=== PATIENT | female | born 1975 | race Caucasian/White ===

== ENCOUNTER 2016-09-18 10:13 | Inpatient (IN) | payer OTHER ==
[2016-09-18 11:13] VITALS: BMI 30.9
--- NOTE | 2016-09-18 11:52 | HP ---
COWS - Scale Resting Pulse: 0= DC 80 or Below Sweatin= Chills/Flushing Restless Observation: 1= Difficult to Sit Still Pupil Size: 0= Normal to Room Light Bone or Joint Aches: 2= Severe Diffuse Aches Runny Nose/ Eye Tearin= Runny Nose/Eyes GI Upset > 30mins: 1= Stomach Cramp Tremor Observation: 1= Tremor [place], Not Seen Yawning Observation: 1= 1-2x During Session Anxiety or Irritability: 2=Irritable/Anxious Goose Flesh Skin: 0=Smooth Skin COWS Score: 11 Admission ROS BHS - HPI Chief Complaint: I want to stop, I'm tired Allergies/Adverse Reactions: Allergies Allergy/AdvReac Type Severity Reaction Status Date / Time No Known Allergies Allergy Verified 09/18/16 11:47 History of Present Illness: 40 yo woman here for detox from heroin - also uses marijuana. No seizures but does have black outs. History of being on methadone program but 'it didn't work for me' now thinking about suboxone. Exam Limitations: Clinical Condition - Ebola screening Have you traveled outside of the country in the last 21 days: No Have you had contact with anyone from an Ebola affected area: No Have you been sick,other than usual withdrawal symptoms: No Do you have a fever: No - Review of Systems Constitutional: Loss of Appetite, Night Sweats, Changes in sleep EENT: reports: Blurred Vision, Nose Congestion Respiratory: reports: Shortness of Breath, Wheezing Cardiac: reports: No Symptoms Reported GI: reports: Nausea, Abdominal cramping : reports: No Symptoms Reported Musculoskeletal: reports: Back Pain, Muscle Pain Integumentary: reports: Rash (chronic eczema) Neuro: reports: Headache, Tremors Endocrine: reports: No Symptoms Reported Hematology: reports: No Symptoms Reported Psychiatric: reports: Judgement Intact, Mood/Affect Appropiate, Orientated x3, Anxious Other Systems: Reviewed and Negative Patient History - Patient Medical History Hx Anemia: No Hx Asthma: Yes Hx Cancer: No Hx Cardiac Disorders: No Hx Congestive Heart Failure: No Hx Hypertension: No Hx Hypercholesterolemia: No Hx Pacemaker: No HX Cerebrovascular Accident: No Hx Seizures: No Hx Dementia: No Hx Diabetes: No Hx Gastrointestinal Disorders: No Hx Liver Disease: No Hx Genitourinary Disorders: No Hx Sexually Transmitted Disorders: No Hx Renal Disease (ESRD): No Hx Thyroid Disease: No Hx Human Immunodeficiency Virus (HIV): No Hx Hepatitis C: No Hx Depression: Yes (hx meds - depakot, celexa, clonopin - none x 2 years) Hx Suicide Attempt: Yes (5 years ago - overdose - hospitalized [place]) Hx Bipolar Disorder: Yes - Patient Surgical History Past Surgical History: Yes Hx Breast Biopsy: Yes (left lumpectomy 2002 (benign)) Hx Cholecystectomy: Yes (over 10 years ago) Hx Orthopedic Surgery: Yes (left carpal tunnel release 2005; [id number]) - PPD History Previous Implant?: Yes Documented Results: Negative w/o proof Implanted On Prior [facility] Admission?: No PPD to be Administered?: Yes - Reproductive History Patient is a Female of Child Bearing Age (11 -55 yrs old): No (male) - Smoking Cessation Smoking history: Current every day smoker Have you smoked in the past 12 months: Yes Aproximately how many cigarettes per day: 20 Initiated information on smoking cessation: Yes 'Breaking Loose' booklet given: 09/18/16 (give on floor) - Substance & Tx. History Hx Alcohol Use: No Hx Substance Use: Yes Substance Use Type: Heroin, Marijuana Hx Substance Use Treatment: Yes (detox, hx methadone) - Substances Abused Heroin Route: Inhalation Frequency: Daily Amount used: 10 bags Age of first use: 36 Date of Last Use: 09/17/16 Marijuana/Hashish Route: Smoking Frequency: Daily Amount used: 1 bag Age of first use: 14 Date of Last Use: 09/17/16 Family Disease History - Family Disease History Family Disease History: Diabetes: Mother (alive,), Heart Disease: Mother, CA: Father (, etoh), Respiratory: Sister (depression, etoh, drugs), Other: Father, Mother, Brother (etoh, drugs, alive), Sister, Daughter (asthma) Admission Physical Exam BHS - Vital Signs Vital Signs: Vital Signs - 24 hr 09/18/16 11:11 Temperature 98.5 F Pulse Rate 76 Respiratory 18 Rate Blood Pressure 128/83 - Physical General Appearance: Yes: Nourished, Appropriately Dressed, Mild Distress, Anxious HEENTM: Yes: Hearing grossly Normal, Normocephalic, Normal Voice, Pharynx Normal , Rhinorrhea, Other (two tongue studs) Respiratory: Yes: No Respiratory Distress, Rhonchi Neck: Yes: No masses,lesions,Nodules, Supple Breast: Yes: Breast Exam Deferred Cardiology: Yes: Regular Rhythm, Regular Rate Abdominal: Yes: Soft Genitourinary: Yes: Within Normal Limits Back: Yes: Surgical Scar Musculoskeletal: Yes: full range of Motion, Gait Steady, Back pain, Muscle Pain Extremities: Yes: Normal Inspection, Non-Tender Neurological: Yes: Fully Oriented, Alert, Motor Strength 5/5, Normal Mood/Affect , Normal Response Integumentary: Yes: Normal Color, Warm, Rash (mild erythematous dry rash both arms) Lymphatic: Yes: Within Normal Limits - Diagnostic (1) Asthma Current Visit: Yes Status: Chronic Qualifiers: Asthma severity: mild persistent Asthma complication type: uncomplicated Qualified Code(s): J45.30 - Mild persistent asthma, uncomplicated (2) Back pain Current Visit: Yes Status: Chronic Qualifiers: Back pain location: low back pain Chronicity: chronic Sciatica presence: without sciatica (3) Eczema Current Visit: Yes Status: Chronic Qualifiers: Eczema type: other Qualified Code(s): L30.8 - Other specified dermatitis (4) Marijuana dependence Current Visit: Yes Status: Chronic (5) Nicotine dependence Current Visit: Yes Status: Chronic Qualifiers: Nicotine product type: cigarettes Substance use status: uncomplicated Qualified Code(s): F17.210 - Nicotine dependence, cigarettes, uncomplicated (6) Post-laminectomy syndrome Current Visit: Yes Status: Chronic (7) Uncomplicated opioid dependence Current Visit: Yes Status: Chronic Cleared for Admission [facility] - Detox or Rehab [facility] Level of Care: Medically Managed Detox Regimen/Protocol: Methadone [facility] Breath Alcohol Content Breath Alcohol Content: 0 Urine Pregancy Test - Result Urine Test Results: Negative- NO Line Present Urine Drug Screen - Results Drug Screen Negative: No Urine Drug Screen Results: THC-Marijuana, OPI-Opiates
[2016-09-18] MEDS ORDERED: MAG HYDROX/AL HYDROX/SIMETH 30 ML UNIT-DOSE CUP PO PRN (12:03)
[2016-09-18] MEDS ORDERED: ACETAMINOPHEN 325 MG TABLET (FP) PO PRN (12:03)
[2016-09-18] MEDS ORDERED: LOPERAMIDE HCL 2 MG CAPSULE PO PRN (12:03)
[2016-09-18] MEDS ORDERED: METHADONE HCL 10 MG TABLET (FOR DETOX USE ONLY) PO ONE ×2 (12:03→23:00)
[2016-09-18] MEDS ORDERED: MAGNESIUM HYDROX 2400MG/30ML ORAL SUSPENSION 30 ML CUP PO PRN (12:03)
[2016-09-18] MEDS ORDERED: guaiFENesin/D-METHORPHAN HB 10 ML UNIT-DOSE CUPS PO PRN (12:03)
[2016-09-18] MEDS ORDERED: P-EPHED 60MG/TRIPROLIDI 2.5MG TABLET PO PRN (12:03)
[2016-09-18] MEDS ORDERED: MAGNESIUM CITRATE 300 ML BOTTLE PO PRN (12:03)
[2016-09-18] MEDS ORDERED: MENTHOL/PHENOL 1 EACH UD MM PRN (12:03)
[2016-09-18] MEDS ORDERED: IBUPROFEN 400 MG TABLET (FP) PO PRN (12:03)
[2016-09-18] MEDS: ALBUTEROL SO4 6.7 GM HFA INHALER IH SCH ×3 (12:30→21:28)
[2016-09-18] MEDS: diazePAM 5 MG TABLET PO PRN ×2 (13:56→22:08)
[2016-09-18] MEDS: NICOTINE 21 MG/24 HOURS TOPICAL PATCH TD SCH (13:57)
[2016-09-18] MEDS: LIDOCAINE 5% TOPICAL PATCH TP SCH (14:09)
[2016-09-18] MEDS: FLUOCINONIDE 0.05% TOP OINT (60 GM TUBE) TP SCH ×2 (14:40→22:55)
[2016-09-18] MEDS ORDERED: ALBUTEROL SO4 6.7 GM HFA INHALER IH ONE (16:29)
[2016-09-18] MEDS: THIAMINE HCL 100 MG TABLET (FP) PO SCH (22:08)
[2016-09-18] MEDS: diphenhydrAMINE HCL 50 MG CAPSULE PO PRN (22:08)
[2016-09-18] MEDS: ALBUTEROL SO4 2.5/IPRATROPIUM 0.5 INH SOL 3 ML VIAL.NEB. NEB PRN (22:56)
[2016-09-19] MEDS: ALBUTEROL SO4 6.7 GM HFA INHALER IH SCH ×6 (06:17→23:58)
[2016-09-19] MEDS: ALBUTEROL SO4 2.5/IPRATROPIUM 0.5 INH SOL 3 ML VIAL.NEB. NEB PRN (06:22)
[2016-09-19 09:59] LABS: MCH 29.6 pg (25.7-33.7); MCHC 32.8 g/dl (32.0-36.0); MEAN CELL VOLUME 90.2 fl (80-96); MEAN PLT VOLUME 8.5 fl (7.5-11.1); PLATELET COUNT 220 K/MM3 (134-434); RDW 14.6 % (11.6-15.6); WHITE BLOOD COUNT 5.9 K/mm3 (4.0-10.0)
[2016-09-19] MEDS ORDERED: METHADONE HCL 10 MG TABLET (FOR DETOX USE ONLY) PO ONE (10:00)
[2016-09-19 10:03] LABS: ALBUMIN 3.8 g/dl (3.4-5.0); ALK PHOS 94 U/L (45-117); ANION GAP 7 (8-16); BILIRUBIN,TOTAL 0.5 mg/dL (0.2-1.0); CALCIUM 9.3 mg/dL (8.5-10.1); CO2 27 mmol/L (21-32); COCKROFT - GAULT 136.3145; CREATININE 0.7 mg/dL (0.55-1.02); GLUCOSE,RANDOM 128 mg/dL (74-106); SGOT/AST 16 U/L (15-37); SGPT/ALT 15 U/L (12-78); TOT PROT 7.3 g/dl (6.4-8.2)
[2016-09-19] MEDS: PRENATAL VITAMINS W/ FOLIC ACID TABLET (FP) PO SCH (10:09)
[2016-09-19] MEDS: NICOTINE 21 MG/24 HOURS TOPICAL PATCH TD SCH (10:10)
[2016-09-19] MEDS: LIDOCAINE 5% TOPICAL PATCH TP SCH (10:10)
[2016-09-19] MEDS: FLUOCINONIDE 0.05% TOP OINT (60 GM TUBE) TP SCH ×2 (10:10→23:01)
[2016-09-19] MEDS: diazePAM 5 MG TABLET PO PRN ×3 (10:14→20:43)
[2016-09-19 10:25] LABS: URINE APPEARANCE CLEAR; URINE BILIRUBIN NEGATIVE (NEGATIVE); URINE BLOOD NEGATIVE (NEGATIVE); URINE COLOR YELLOW; URINE GLUCOSE (UA) NEGATIVE (NEGATIVE); URINE KETONE NEGATIVE (NEGATIVE); URINE LEUK ESTERASE NEGATIVE (NEGATIVE); URINE NITRITE POSITIVE (NEGATIVE); URINE PROTEIN NEGATIVE (NEGATIVE); URINE UROBILINOGEN NEGATIVE E.U./dl (0.2-1.0)
[2016-09-19] MEDS ORDERED: ONDANSETRON *ODT* 4 MG TABLET SL PRN (11:03)
[2016-09-19 11:04] LABS: URINE BACTERIA RARE /hpf (NONE SEEN); URINE MUCUS RARE; URINE RBC <1 /hpf (0-3); URINE WBC <1 /hpf (3-5)
[2016-09-19] MEDS ORDERED: IBUPROFEN 600 MG TABLET (FP) PO PRN (11:05)
--- NOTE | 2016-09-19 11:09 | PN ---
BHS COWS - Scale Resting Pulse: 1= [place] 81-100 Sweatin=Flushed/Facial Moisture Restless Observation: 1= Difficult to Sit Still Pupil Size: 0= Normal to Room Light Bone or Joint Aches: 2= Severe Diffuse Aches Runny Nose/ Eye Tearin= Runny Nose/Eyes GI Upset > 30mins: 2= Nausea/Diarrhea Tremor Observation of Outstretched Hands: 2= Slight Tremor Visible Yawning Observation: 1= 1-2x During Session Anxiety or Irritability: 2=Irritable/Anxious Goose Flesh Skin: 0=Smooth Skin COWS Score: 15 BHS Progress Note (SOAP) Subjective: Nausea,body aches,sweating,anxiety,restless,interrupted sleep. Objective: 09/19/16 11:07 Last Vital Signs Temp Pulse Resp BP Pulse Ox 98.8 F 91 H 18 139/86 09/19/16 09:34 09/19/16 09:34 09/19/16 09:34 09/19/16 09:34 Laboratory Last Values WBC 5.9 K/mm3 (4.0-10.0) 09/19/16 08:00 RBC 4.82 M/mm3 (3.60-5.2) 09/19/16 08:00 Hgb 14.3 GM/dL (10.7-15.3) 09/19/16 08:00 Hct 43.5 % (32.4-45.2) 09/19/16 08:00 MCV 90.2 fl (80-96) 09/19/16 08:00 MCHC 32.8 g/dl (32.0-36.0) 09/19/16 08:00 RDW 14.6 % (11.6-15.6) 09/19/16 08:00 Plt Count 220 K/MM3 (134-434) 09/19/16 08:00 MPV 8.5 fl (7.5-11.1) 09/19/16 08:00 Sodium 140 mmol/L (136-145) 09/19/16 08:00 Potassium 4.3 mmol/L (3.5-5.1) 09/19/16 08:00 Chloride 106 mmol/L (98-107) 09/19/16 08:00 Carbon Dioxide 27 mmol/L (21-32) 09/19/16 08:00 Anion Gap 7 (8-16) L 09/19/16 08:00 BUN 6 mg/dL (7-18) L 09/19/16 08:00 Creatinine 0.7 mg/dL (0.55-1.02) 09/19/16 08:00 Creat Clearance w eGFR > 60 (>60) 09/19/16 08:00 Random Glucose 128 mg/dL (74-106) H 09/19/16 08:00 Calcium 9.3 mg/dL (8.5-10.1) 09/19/16 08:00 Total Bilirubin 0.5 mg/dL (0.2-1.0) 09/19/16 08:00 AST 16 U/L (15-37) 09/19/16 08:00 ALT 15 U/L (12-78) 09/19/16 08:00 Alkaline Phosphatase 94 U/L (45-117) 09/19/16 08:00 Total Protein 7.3 g/dl (6.4-8.2) 09/19/16 08:00 Albumin 3.8 g/dl (3.4-5.0) 09/19/16 08:00 Urine Color Yellow 09/18/16 08:40 Urine Appearance Clear 09/18/16 08:40 Urine pH 6.0 (5.0-8.0) 09/18/16 08:40 Urine Protein Negative (NEGATIVE) 09/18/16 08:40 Urine Glucose (UA) Negative (NEGATIVE) 09/18/16 08:40 Urine Ketones Negative (NEGATIVE) 09/18/16 08:40 Urine Blood Negative (NEGATIVE) 09/18/16 08:40 Urine Nitrite Positive (NEGATIVE) 09/18/16 08:40 Urine Bilirubin Negative (NEGATIVE) 09/18/16 08:40 Urine Urobilinogen Negative E.U./dl (0.2-1.0) 09/18/16 08:40 Ur Leukocyte Esterase Negative (NEGATIVE) 09/18/16 08:40 labs noted Assessment: 09/19/16 11:08 Withdrawal sx. Plan: continue detox
[2016-09-19] MEDS: diphenhydrAMINE HCL 50 MG CAPSULE PO PRN (22:11)
[2016-09-19] MEDS: THIAMINE HCL 100 MG TABLET (FP) PO SCH (23:58)
[2016-09-20] MEDS: ALBUTEROL SO4 6.7 GM HFA INHALER IH SCH ×6 (00:59→20:55)
[2016-09-20] MEDS: diazePAM 5 MG TABLET PO PRN ×4 (02:53→22:32)
--- NOTE | 2016-09-20 09:10 | EKG ---
Test Reason : Blood Pressure : / mmHG Vent. Rate : 069 BPM Atrial Rate : 069 BPM P-R Int : 130 ms QRS Dur : 092 ms QT Int : 406 ms P-R-T Axes : 066 040 042 degrees QTc Int : 435 ms NORMAL SINUS RHYTHM POSSIBLE LEFT ATRIAL ENLARGEMENT SEPTAL INFARCT , AGE UNDETERMINED ABNORMAL ECG NO PREVIOUS ECGS AVAILABLE Confirmed by DARIANA MCQUEEN MD ([id number]) on 09/20/2016 9:10:16 AM Referred By: Confirmed By:DARIANA MCQUEEN MD
[2016-09-20] MEDS ORDERED: METHADONE HCL 5 MG TABLET (FOR DETOX USE ONLY) PO ONE (10:00)
[2016-09-20] MEDS: PRENATAL VITAMINS W/ FOLIC ACID TABLET (FP) PO SCH (10:22)
[2016-09-20] MEDS: FLUOCINONIDE 0.05% TOP OINT (60 GM TUBE) TP SCH ×2 (10:23→22:29)
[2016-09-20] MEDS: NICOTINE 21 MG/24 HOURS TOPICAL PATCH TD SCH (10:23)
[2016-09-20] MEDS: LIDOCAINE 5% TOPICAL PATCH TP SCH (10:24)
--- NOTE | 2016-09-20 10:59 | PN ---
S COWS - Scale Resting Pulse: 1= [place] 81-100 Sweatin=Flushed/Facial Moisture Restless Observation: 1= Difficult to Sit Still Pupil Size: 1= Pupils >than Normal Bone or Joint Aches: 2= Severe Diffuse Aches Runny Nose/ Eye Tearin= Nasal Congestion GI Upset > 30mins: 2= Nausea/Diarrhea Tremor Observation of Outstretched Hands: 1= Tremor [place], Not Seen Yawning Observation: 0= None Anxiety or Irritability: 2=Irritable/Anxious Goose Flesh Skin: 0=Smooth Skin COWS Score: 13 BHS Progress Note (SOAP) Subjective: interrupted sleep, sweats, nausea, , decreased appetite, lbp Objective: 09/20/16 10:57 Vital Signs Temperature 98.1 F 09/20/16 09:52 Pulse Rate 87 09/20/16 09:52 Respiratory Rate 16 09/20/16 09:52 Blood Pressure 133/83 09/20/16 09:52 O2 Sat by Pulse Oximetry (%) Laboratory Tests 09/18/16 09/19/16 09/19/16 08:40 08:00 08:00 WBC 5.9 RBC 4.82 Hgb 14.3 Hct 43.5 MCV 90.2 MCHC 32.8 RDW 14.6 Plt Count 220 MPV 8.5 Sodium 140 Potassium 4.3 Chloride 106 Carbon Dioxide 27 Anion Gap 7 L BUN 6 L Creatinine 0.7 Creat Clearance w eGFR > 60 Random Glucose 128 H Calcium 9.3 Total Bilirubin 0.5 AST 16 ALT 15 Alkaline Phosphatase 94 Total Protein 7.3 Albumin 3.8 Urine Color Yellow Urine Appearance Clear Urine pH 6.0 Ur Specific [place] 1.015 Urine Protein Negative Urine Glucose (UA) Negative Urine Ketones Negative Urine Blood Negative Urine Nitrite Positive Urine Bilirubin Negative Urine Urobilinogen Negative Ur Leukocyte Esterase Negative Urine RBC <1 Urine WBC <1 Ur Epithelial Cells Rare Urine Bacteria Rare Urine Mucus Rare RPR Titer 09/19/16 08:00 WBC RBC Hgb Hct MCV MCHC RDW Plt Count MPV Sodium Potassium Chloride Carbon Dioxide Anion Gap BUN Creatinine Creat Clearance w eGFR Random Glucose Calcium Total Bilirubin AST ALT Alkaline Phosphatase Total Protein Albumin Urine Color Urine Appearance Urine pH Ur Specific [place] Urine Protein Urine Glucose (UA) Urine Ketones Urine Blood Urine Nitrite Urine Bilirubin Urine Urobilinogen Ur Leukocyte Esterase Urine RBC Urine WBC Ur Epithelial Cells Urine Bacteria Urine Mucus RPR Titer Nonreactive pt aox3 in nad ambulating 09/20/16 10:59 Assessment: 09/20/16 10:57 witthdrawal sx;s Plan: cont. detox increase fluids zofran prn ensure 180ml po bid flexeril 10mg tid/prn
--- NOTE | 2016-09-20 11:22 | CONSULT ---
[facility] Psychiatric Consult - Data Date of interview: 09/20/16 Admission source: [facility] Identifying data: This is 40 years old female with psychiatric hospitalization history intoxicated with: Opioids, Cannabis, Nicotine Substance Abuse History: - Smoking Cessation. Smoking history: Current every day smoker. Have you smoked in the past 12 months: Yes. Aproximately how many cigarettes per day: 20. Initiated information on smoking cessation: Yes. ' Breaking Loose' booklet given: 09/18/16 (give on floor). - Substance & Tx. History. Hx Alcohol Use: No. Hx Substance Use: Yes. Substance Use Type: Heroin, Marijuana. Hx Substance Use Treatment: Yes (detox, hx methadone). - Substances Abused. Heroin. Route: Inhalation. Frequency: Daily. Amount used: 10 bags. Age of first use: 36. Date of Last Use: 09/17/16. Marijuana /Hashish. Route: Smoking. Frequency: Daily. Amount used: 1 bag. Age of first use: 14. Date of Last Use: 09/17/16 Medical History: Asthma, LBP, Eczema Psychiatric History: Patient reports psychiatric hospitalization on 2008 after suicidal attempt,l cutting his wrists with credit card, reports no suicidal history since then, reports no medications taking prior to admission Physical/Sexual Abuse/Trauma History: Denies Additional Comment: Observation. Detox Unit Care Protocol Mental Status Exam - Mental Status Exam Alert and Oriented to: Person Cognitive Function: Fair Patient Appearance: Unkempt Mood: Sad Affect: Flat Patient Behavior: Sedated Speech Pattern: Delayed Voice Loudness: Mildly Soft/Quiet Thought Process: Circumstantial Thought Disorder: Being Controlled Hallucinations: Denies Suicidal Ideation: Denies Homicidal Ideation: Denies Insight/Judgement: Fair Sleep: Difficulty falling asleep Appetite: Fair Muscle strength/Tone: Mild Hypotonicity Gait/Station: Shuffling Additional Comments: Observation. Detox Unit Care Protocol Psychiatric Findings - Problem List ([place] 1, 2,3) (1) Marijuana dependence Current Visit: Yes Status: Chronic (2) Nicotine dependence Current Visit: Yes Status: Chronic Qualifiers: Nicotine product type: cigarettes Substance use status: uncomplicated Qualified Code(s): F17.210 - Nicotine dependence, cigarettes, uncomplicated (3) Uncomplicated opioid dependence Current Visit: Yes Status: Chronic (4) Drug-induced mood disorder Current Visit: Yes Status: Suspected - Initial Treatment Plan Initial Treatment Plan: Observation. Detox Unit Care Protocol
[2016-09-20] MEDS: CYCLOBENZAPRINE HCL 10 MG TABLET (FP) PO PRN (12:26)
[2016-09-20] MEDS: hydrOXYzine PAMOATE 50 MG CAPSULE (FP) PO PRN (12:26)
[2016-09-20] MEDS: THIAMINE HCL 100 MG TABLET (FP) PO SCH (22:28)
[2016-09-20] MEDS: diphenhydrAMINE HCL 50 MG CAPSULE PO PRN (22:32)
[2016-09-21] MEDS: ALBUTEROL SO4 6.7 GM HFA INHALER IH SCH ×6 (01:09→21:10)
[2016-09-21] MEDS: diazePAM 5 MG TABLET PO PRN ×2 (04:41→10:29)
[2016-09-21] MEDS: hydrOXYzine PAMOATE 50 MG CAPSULE (FP) PO PRN ×3 (06:38→17:36)
[2016-09-21] MEDS ORDERED: METHADONE HCL 5 MG TABLET (FOR DETOX USE ONLY) PO ONE (10:00)
[2016-09-21] MEDS: PRENATAL VITAMINS W/ FOLIC ACID TABLET (FP) PO SCH (10:24)
[2016-09-21] MEDS: NICOTINE 21 MG/24 HOURS TOPICAL PATCH TD SCH (10:25)
[2016-09-21] MEDS: FLUOCINONIDE 0.05% TOP OINT (60 GM TUBE) TP SCH ×2 (10:25→22:08)
[2016-09-21] MEDS: LIDOCAINE 5% TOPICAL PATCH TP SCH (10:25)
[2016-09-21] MEDS: CYCLOBENZAPRINE HCL 10 MG TABLET (FP) PO PRN (10:29)
--- NOTE | 2016-09-21 10:50 | PN ---
BHS Progress Note (SOAP) Subjective: interrupted sleep agitation body aches sweats chills nausea Objective: 09/21/16 10:49 Vital Signs Temperature 98.1 F 09/21/16 05:59 Pulse Rate 73 09/21/16 05:59 Respiratory Rate 16 09/21/16 05:59 Blood Pressure 94/54 09/21/16 05:59 O2 Sat by Pulse Oximetry (%) Laboratory Tests 09/18/16 09/19/16 09/19/16 08:40 08:00 08:00 WBC 5.9 RBC 4.82 Hgb 14.3 Hct 43.5 MCV 90.2 MCHC 32.8 RDW 14.6 Plt Count 220 MPV 8.5 Sodium 140 Potassium 4.3 Chloride 106 Carbon Dioxide 27 Anion Gap 7 L BUN 6 L Creatinine 0.7 Creat Clearance w eGFR > 60 Random Glucose 128 H Calcium 9.3 Total Bilirubin 0.5 AST 16 ALT 15 Alkaline Phosphatase 94 Total Protein 7.3 Albumin 3.8 Urine Color Yellow Urine Appearance Clear Urine pH 6.0 Ur Specific [place] 1.015 Urine Protein Negative Urine Glucose (UA) Negative Urine Ketones Negative Urine Blood Negative Urine Nitrite Positive Urine Bilirubin Negative Urine Urobilinogen Negative Ur Leukocyte Esterase Negative Urine RBC <1 Urine WBC <1 Ur Epithelial Cells Rare Urine Bacteria Rare Urine Mucus Rare RPR Titer 09/19/16 08:00 WBC RBC Hgb Hct MCV MCHC RDW Plt Count MPV Sodium Potassium Chloride Carbon Dioxide Anion Gap BUN Creatinine Creat Clearance w eGFR Random Glucose Calcium Total Bilirubin AST ALT Alkaline Phosphatase Total Protein Albumin Urine Color Urine Appearance Urine pH Ur Specific [place] Urine Protein Urine Glucose (UA) Urine Ketones Urine Blood Urine Nitrite Urine Bilirubin Urine Urobilinogen Ur Leukocyte Esterase Urine RBC Urine WBC Ur Epithelial Cells Urine Bacteria Urine Mucus RPR Titer Nonreactive awake/alert ambulating no acute distress Assessment: 09/21/16 10:49 withdrawal sx Plan: continue detox increase fluids zofran prn
[2016-09-21] MEDS ORDERED: LIDOCAINE 5% TOPICAL PATCH TP ONE (11:41)
[2016-09-21] MEDS: THIAMINE HCL 100 MG TABLET (FP) PO SCH (22:08)
[2016-09-22] MEDS: ALBUTEROL SO4 6.7 GM HFA INHALER IH SCH ×6 (00:52→20:15)
[2016-09-22] MEDS: diphenhydrAMINE HCL 50 MG CAPSULE PO PRN ×2 (01:50→22:14)
[2016-09-22] MEDS ORDERED: METHADONE HCL 10 MG TABLET (FOR DETOX USE ONLY) PO ONE (10:00)
[2016-09-22] MEDS: CYCLOBENZAPRINE HCL 10 MG TABLET (FP) PO PRN ×2 (10:19→22:14)
[2016-09-22] MEDS: hydrOXYzine PAMOATE 50 MG CAPSULE (FP) PO PRN ×2 (10:19→17:42)
[2016-09-22] MEDS: FLUOCINONIDE 0.05% TOP OINT (60 GM TUBE) TP SCH ×2 (10:19→22:13)
[2016-09-22] MEDS: LIDOCAINE 5% TOPICAL PATCH TP SCH (10:19)
[2016-09-22] MEDS: PRENATAL VITAMINS W/ FOLIC ACID TABLET (FP) PO SCH (10:19)
[2016-09-22] MEDS: NICOTINE 21 MG/24 HOURS TOPICAL PATCH TD SCH (10:20)
--- NOTE | 2016-09-22 11:14 | PN ---
BHS Progress Note (SOAP) Subjective: feels better , interrupted sleep, Objective: 09/22/16 11:10 Vital Signs Temperature 98.7 F 09/22/16 10:41 Pulse Rate 77 09/22/16 10:41 Respiratory Rate 18 09/22/16 10:41 Blood Pressure 104/54 09/22/16 10:41 O2 Sat by Pulse Oximetry (%) Vital Signs Temperature 98.7 F 09/22/16 10:41 Pulse Rate 77 09/22/16 10:41 Respiratory Rate 18 09/22/16 10:41 Blood Pressure 104/54 09/22/16 10:41 O2 Sat by Pulse Oximetry (%) Laboratory Tests 09/18/16 09/19/16 09/19/16 08:40 08:00 08:00 WBC 5.9 RBC 4.82 Hgb 14.3 Hct 43.5 MCV 90.2 MCHC 32.8 RDW 14.6 Plt Count 220 MPV 8.5 Sodium 140 Potassium 4.3 Chloride 106 Carbon Dioxide 27 Anion Gap 7 L BUN 6 L Creatinine 0.7 Creat Clearance w eGFR > 60 Random Glucose 128 H Calcium 9.3 Total Bilirubin 0.5 AST 16 ALT 15 Alkaline Phosphatase 94 Total Protein 7.3 Albumin 3.8 Urine Color Yellow Urine Appearance Clear Urine pH 6.0 Ur Specific [place] 1.015 Urine Protein Negative Urine Glucose (UA) Negative Urine Ketones Negative Urine Blood Negative Urine Nitrite Positive Urine Bilirubin Negative Urine Urobilinogen Negative Ur Leukocyte Esterase Negative Urine RBC <1 Urine WBC <1 Ur Epithelial Cells Rare Urine Bacteria Rare Urine Mucus Rare RPR Titer 09/19/16 08:00 WBC RBC Hgb Hct MCV MCHC RDW Plt Count MPV Sodium Potassium Chloride Carbon Dioxide Anion Gap BUN Creatinine Creat Clearance w eGFR Random Glucose Calcium Total Bilirubin AST ALT Alkaline Phosphatase Total Protein Albumin Urine Color Urine Appearance Urine pH Ur Specific [place] Urine Protein Urine Glucose (UA) Urine Ketones Urine Blood Urine Nitrite Urine Bilirubin Urine Urobilinogen Ur Leukocyte Esterase Urine RBC Urine WBC Ur Epithelial Cells Urine Bacteria Urine Mucus RPR Titer Nonreactive pt aox3 in nad ambulating Assessment: 09/22/16 11:14 withdrawal sx.s Plan: cont. detox increase fluids d/c in am
[2016-09-22] MEDS: THIAMINE HCL 100 MG TABLET (FP) PO SCH (22:13)
[2016-09-23] MEDS: ALBUTEROL SO4 6.7 GM HFA INHALER IH SCH ×2 (00:17→07:17)
[2016-09-23] MEDS: hydrOXYzine PAMOATE 50 MG CAPSULE (FP) PO PRN (02:19)
[2016-09-23] MEDS ORDERED: METHADONE HCL 5 MG TABLET (FOR DETOX USE ONLY) PO ONE (06:00)
[2016-09-23 06:50] VITALS: BP 129/70; PULSE 72; TEMP 97.7
--- NOTE | 2016-09-23 07:49 | PN ---
S Progress Note (SOAP) Subjective: ALERT,NO COMPLAINT Objective: 09/23/16 07:52 Vital Signs Temperature 97.7 F 09/23/16 06:49 Pulse Rate 72 09/23/16 06:49 Respiratory Rate 16 09/23/16 06:49 Blood Pressure 129/70 09/23/16 06:49 O2 Sat by Pulse Oximetry (%) Assessment: 09/23/16 07:54 detox completed,no withdrawal symptom Plan: discharge today,follow up with after care program as arrangement
--- NOTE | 2016-09-23 07:56 | DS ---
[facility] Detox Discharge Summary Admission Date: 09/18/16 Discharge Date: 09/23/16 - History Present History: Cannabis Dependence, Opioid Dependence Additional Comments: follow up with after care program as arrangement and pmd for medical problem Pertinent Past History: asthma low back pain s/p back surgery nicotine dependence eczema - Physical Exam Results Vital Signs: Vital Signs Temperature 97.7 F 09/23/16 06:49 Pulse Rate 72 09/23/16 06:49 Respiratory Rate 16 09/23/16 06:49 Blood Pressure 129/70 09/23/16 06:49 O2 Sat by Pulse Oximetry (%) Pertinent Admission Physical Exam Findings: withdrawal symptom - Treatment Hospital Course: Detox Protocol Followed, Detoxed Safely, Responded well, Discharged Condition Good Patient has Accepted a Rehab Referral to: declined - Medication Discharge Medications: Ambulatory Orders Albuterol Sulfate Inhaler - [Ventolin Hfa Inhaler -] 2 inh PO Q4H 09/18/16 Fluocinonide 0.05% Oin [Lidex 0.05% Ointment -] 1 applic TP BID 09/18/16 - Diagnosis (1) Asthma Current Visit: Yes Status: Chronic Qualifiers: Asthma severity: mild persistent Asthma complication type: uncomplicated Qualified Code(s): J45.30 - Mild persistent asthma, uncomplicated (2) Back pain Current Visit: Yes Status: Chronic Qualifiers: Back pain location: low back pain Chronicity: chronic Sciatica presence: without sciatica (3) Eczema Current Visit: Yes Status: Chronic Qualifiers: Eczema type: other Qualified Code(s): L30.8 - Other specified dermatitis (4) Marijuana dependence Current Visit: Yes Status: Chronic (5) Nicotine dependence Current Visit: Yes Status: Chronic Qualifiers: Nicotine product type: cigarettes Substance use status: uncomplicated Qualified Code(s): F17.210 - Nicotine dependence, cigarettes, uncomplicated (6) Post-laminectomy syndrome Current Visit: Yes Status: Chronic (7) Uncomplicated opioid dependence Current Visit: Yes Status: Chronic - AMA Did Patient Leave Against Medical Advice: No
== END 2016-09-23 08:33 | disposition home or self-care (01) | DRG 897 ==
LOC: YASAS 10:13 → Y6N 12:32
PROVIDERS: ADMIT Internal Medicine; ATTEND Internal Medicine Addiction Medicine
PROC: HZ2ZZZZ Detoxification Services for Substance Abuse Treatment (ICD-10-PCS; principal; 2016-09-18)
DX: F19.230 Other psychoactive substance dependence with withdrawal, uncomplicated (principal); F11.23 Opioid dependence with withdrawal; F12.20 Cannabis dependence, uncomplicated; F17.210 Nicotine dependence, cigarettes, uncomplicated; J45.30 Mild persistent asthma, uncomplicated; L30.8 Other specified dermatitis; M54.5 Low back pain; G89.29 Other chronic pain; M96.1 Postlaminectomy syndrome, not elsewhere classified; Z91.5 Personal history of self-harm; F91.8 Other conduct disorders
CPT/HCPCS: 36415; 80053; 81003; 81015; 85027; 86593; 93005; 93010; 94640

== ENCOUNTER 2016-12-18 10:19 | Inpatient (IN) | payer OTHER ==
[2016-12-18 10:36] VITALS: BMI 32.1
--- NOTE | 2016-12-18 11:19 | HP ---
COWS - Scale Resting Pulse: 0= MS 80 or Below Sweatin= Chills/Flushing Restless Observation: 0= Sits Still Pupil Size: 0= Normal to Room Light Bone or Joint Aches: 2= Severe Diffuse Aches Runny Nose/ Eye Tearin= Nasal Congestion GI Upset > 30mins: 1= Stomach Cramp Tremor Observation: 2= Slight Tremor Visible Yawning Observation: 1= 1-2x During Session Anxiety or Irritability: 1=Feels Anxious/Irritable Goose Flesh Skin: 0=Smooth Skin COWS Score: 9 Admission ROS BHS - HPI Chief Complaint: I want to stop, I'm tired Allergies/Adverse Reactions: Allergies Allergy/AdvReac Type Severity Reaction Status Date / Time morphine Allergy Mild Rash Verified 12/18/16 11:16 History of Present Illness: 40 yo woman here for detox from heroin - last detox October 2016 at [facility]. Denies seizures. Exam Limitations: Clinical Condition - Ebola screening Have you traveled outside of the country in the last 21 days: No Have you had contact with anyone from an Ebola affected area: No Have you been sick,other than usual withdrawal symptoms: No Do you have a fever: No - Review of Systems Constitutional: Loss of Appetite, Malaise, Changes in sleep, Weakness EENT: reports: Blurred Vision, Nose Congestion Respiratory: reports: No Symptoms reported Cardiac: reports: No Symptoms Reported GI: reports: Nausea, Poor Appetite, Indigestion : reports: Dysuria Musculoskeletal: reports: Back Pain, Joint Pain, Muscle Pain Integumentary: reports: Dryness Neuro: reports: Headache Endocrine: reports: No Symptoms Reported Hematology: reports: No Symptoms Reported Psychiatric: reports: Judgement Intact, Mood/Affect Appropiate, Orientated x3, Anxious Other Systems: Reviewed and Negative Patient History - Patient Medical History Hx Anemia: No Hx Asthma: Yes (on inhaler) Hx Chronic Obstructive Pulmonary Disease (COPD): No Hx Cancer: No Hx Cardiac Disorders: No Hx Congestive Heart Failure: No Hx Hypertension: No Hx Hypercholesterolemia: No Hx Pacemaker: No HX Cerebrovascular Accident: No Hx Seizures: No Hx Dementia: No Hx Diabetes: No Hx Gastrointestinal Disorders: No Hx Liver Disease: No Hx Genitourinary Disorders: No Hx Sexually Transmitted Disorders: No Hx Renal Disease (ESRD): No Hx Thyroid Disease: No Hx Human Immunodeficiency Virus (HIV): No Hx Hepatitis C: No Hx Depression: Yes (hx meds - depakot, celexa, clonopin - none x 2 years) Hx Suicide Attempt: Yes (5 years ago - overdose - hospitalized [place]) Hx Bipolar Disorder: Yes Hx Schizophrenia: No Other Medical History: chronic back pain - Patient Surgical History Past Surgical History: Yes Hx Neurologic Surgery: No Hx Cataract Extraction: No Hx Cardiac Surgery: No Hx Lung Surgery: No Hx Breast Surgery: No Hx Breast Biopsy: Yes (left lumpectomy 2002 (benign)) Hx Abdominal Surgery: No Hx Appendectomy: No Hx Cholecystectomy: Yes (over 10 years ago) Hx Genitourinary Surgery: No Hx Section: No Hx Orthopedic Surgery: Yes (left carpal tunnel release 2005; [id number]) Anesthesia Reaction: No - PPD History Previous Implant?: Yes Documented Results: Negative w/proof Date: 09/20/16 PPD to be Administered?: No - Reproductive History Patient is a Female of Child Bearing Age (11 -55 yrs old): Yes - Smoking Cessation Smoking history: Current every day smoker Have you smoked in the past 12 months: Yes Aproximately how many cigarettes per day: 20 Hx Chewing Tobacco Use: No Initiated information on smoking cessation: Yes 'Breaking Loose' booklet given: 12/18/16 (give on floor) - Substance & Tx. History Hx Alcohol Use: No Hx Substance Use: Yes Substance Use Type: Heroin, Marijuana Hx Substance Use Treatment: Yes (detox, outpatient rehab, methadone hx 120mg) - Substances Abused Heroin Route: Inhalation Frequency: Daily Amount used: 13 bags Age of first use: 35 Date of Last Use: 12/17/16 Marijuana/Hashish Route: Smoking Frequency: Daily Amount used: 1 bag Age of first use: 15 Date of Last Use: 12/17/16 Family Disease History - Family Disease History Family Disease History: Diabetes: Mother (alive,), Heart Disease: Mother, CA: Father (, etoh), Respiratory: Sister (depression, etoh, drugs), Other: Father, Mother, Brother (etoh, drugs, alive), Sister, Daughter (asthma) Admission Physical Exam BHS - Vital Signs Vital Signs: Vital Signs - 24 hr 12/18/16 10:23 Temperature 97.4 F L Pulse Rate 74 Respiratory 20 Rate Blood Pressure 128/66 - Physical General Appearance: Yes: Nourished, Appropriately Dressed, Mild Distress HEENTM: Yes: Hearing grossly Normal, Normal ENT Inspection, Normocephalic, Normal Voice Respiratory: Yes: Normal Breath Sounds, No Respiratory Distress Neck: Yes: No masses,lesions,Nodules, Supple Breast: Yes: Breast Exam Deferred Cardiology: Yes: Regular Rhythm, Regular Rate Abdominal: Yes: Soft Genitourinary: Yes: Dysuria Back: Yes: Decreased Range of Motion, Surgical Scar Musculoskeletal: Yes: full range of Motion, Gait Steady, Back pain, Muscle Pain Extremities: Yes: Normal Inspection, Non-Tender Neurological: Yes: Fully Oriented, Alert, Normal Mood/Affect, Normal Response Integumentary: Yes: Normal Color, Warm Lymphatic: Yes: Within Normal Limits - Diagnostic (1) Uncomplicated opioid dependence Current Visit: Yes Status: Chronic (2) Marijuana dependence Current Visit: Yes Status: Chronic (3) Nicotine dependence Current Visit: Yes Status: Chronic Qualifiers: Nicotine product type: cigarettes Substance use status: uncomplicated Qualified Code(s): F17.210 - Nicotine dependence, cigarettes, uncomplicated (4) Post-laminectomy syndrome Current Visit: Yes Status: Chronic (5) Eczema Current Visit: Yes Status: Chronic Qualifiers: Eczema type: other Qualified Code(s): L30.8 - Other specified dermatitis Cleared for Admission [facility] - Detox or Rehab [facility] Level of Care: Medically Managed Detox Regimen/Protocol: Methadone [facility] Breath Alcohol Content Breath Alcohol Content: 0 Urine Pregancy Test - Result Urine Test Results: Negative- NO Line Present Urine Drug Screen - Results Drug Screen Negative: No Urine Drug Screen Results: THC-Marijuana, OPI-Opiates
[2016-12-18] MEDS ORDERED: MAGNESIUM CITRATE 300 ML BOTTLE PO PRN (11:24)
[2016-12-18] MEDS ORDERED: MAG HYDROX/AL HYDROX/SIMETH 30 ML UNIT-DOSE CUP PO PRN (11:24)
[2016-12-18] MEDS ORDERED: MENTHOL/PHENOL 1 EACH UD MM PRN (11:24)
[2016-12-18] MEDS ORDERED: P-EPHED 60MG/TRIPROLIDI 2.5MG TABLET PO PRN (11:24)
[2016-12-18] MEDS ORDERED: MAGNESIUM HYDROX 2400MG/30ML ORAL SUSPENSION 30 ML CUP PO PRN (11:24)
[2016-12-18] MEDS ORDERED: guaiFENesin/D-METHORPHAN HB 10 ML UNIT-DOSE CUPS PO PRN (11:24)
[2016-12-18] MEDS ORDERED: ACETAMINOPHEN 325 MG TABLET (FP) PO PRN (11:24)
[2016-12-18] MEDS ORDERED: LOPERAMIDE HCL 2 MG CAPSULE PO PRN (11:24)
[2016-12-18] MEDS ORDERED: NICOTINE POLACRILEX 2 MG GUM BUC PRN (11:24)
[2016-12-18] MEDS ORDERED: METHADONE HCL 10 MG TABLET (FOR DETOX USE ONLY) PO ONE ×2 (13:00→23:00)
[2016-12-18] MEDS: diazePAM 5 MG TABLET PO PRN ×3 (13:49→22:34)
[2016-12-18] MEDS: NICOTINE 21 MG/24 HOURS TOPICAL PATCH TD SCH (13:51)
[2016-12-18] MEDS: FLUOCINONIDE 0.05% TOP OINT (60 GM TUBE) TP SCH ×2 (15:51→23:42)
[2016-12-18] MEDS: ALBUTEROL SO4 6.7 GM HFA INHALER IH PRN (17:15)
[2016-12-18] MEDS: IBUPROFEN 400 MG TABLET (FP) PO PRN (19:32)
[2016-12-18] MEDS: THIAMINE HCL 100 MG TABLET (FP) PO SCH (22:34)
[2016-12-18] MEDS: diphenhydrAMINE HCL 50 MG CAPSULE PO PRN (22:34)
--- NOTE | 2016-12-19 08:11 | EKG ---
Test Reason : Blood Pressure : / mmHG Vent. Rate : 061 BPM Atrial Rate : 061 BPM P-R Int : 146 ms QRS Dur : 094 ms QT Int : 416 ms P-R-T Axes : 065 036 044 degrees QTc Int : 418 ms NORMAL SINUS RHYTHM NORMAL ECG WHEN COMPARED WITH ECG OF 18-SEP-2016 13:06, CRITERIA FOR SEPTAL INFARCT ARE NO LONGER PRESENT Confirmed by RITCHIE MOCK MD ([id number]) on 12/19/2016 8:10:31 AM Referred By: Confirmed By:RITCHIE MOCK MD
[2016-12-19 09:25] LABS: MCHC 32.8 g/dl (32.0-36.0); MEAN CELL VOLUME 91.6 fl (80-96); MEAN PLT VOLUME 8.7 fl (7.5-11.1); PLATELET COUNT 215 K/MM3 (134-434); RDW 13.7 % (11.6-15.6); WHITE BLOOD COUNT 5.6 K/mm3 (4.0-10.0)
[2016-12-19] MEDS ORDERED: METHADONE HCL 10 MG TABLET (FOR DETOX USE ONLY) PO ONE (10:00)
[2016-12-19 10:03] LABS: ALBUMIN 3.4 g/dl (3.4-5.0); ALK PHOS 83 U/L (45-117); ANION GAP 4 (8-16); BILIRUBIN,TOTAL 0.4 mg/dL (0.2-1.0); CALCIUM 9.3 mg/dL (8.5-10.1); CO2 29 mmol/L (21-32); CREATININE 0.8 mg/dL (0.55-1.02); GLUCOSE,RANDOM 122 mg/dL (74-106); SGOT/AST 12 U/L (15-37); SGPT/ALT 13 U/L (12-78); TOT PROT 6.9 g/dl (6.4-8.2)
[2016-12-19] MEDS: FLUOCINONIDE 0.05% TOP OINT (60 GM TUBE) TP SCH ×2 (10:34→22:49)
[2016-12-19] MEDS: IBUPROFEN 400 MG TABLET (FP) PO PRN (10:34)
[2016-12-19] MEDS: PRENATAL VITAMINS W/ FOLIC ACID TABLET (FP) PO SCH (10:34)
[2016-12-19] MEDS: diazePAM 5 MG TABLET PO PRN ×3 (10:34→22:48)
[2016-12-19] MEDS: NICOTINE 21 MG/24 HOURS TOPICAL PATCH TD SCH (11:23)
[2016-12-19] MEDS: LIDOCAINE 5% TOPICAL PATCH TP SCH (12:48)
[2016-12-19] MEDS: CYCLOBENZAPRINE HCL 10 MG TABLET (FP) PO PRN ×2 (12:48→22:45)
--- NOTE | 2016-12-19 13:46 | PN ---
S COWS - Scale Resting Pulse: 0= [place] 80 or Below Sweatin= Chills/Flushing Restless Observation: 3= Extraneous Movement Pupil Size: 1= Pupils >than Normal Bone or Joint Aches: 2= Severe Diffuse Aches Runny Nose/ Eye Tearin= Runny Nose/Eyes GI Upset > 30mins: 2= Nausea/Diarrhea Tremor Observation of Outstretched Hands: 2= Slight Tremor Visible Yawning Observation: 1= 1-2x During Session Anxiety or Irritability: 2=Irritable/Anxious Goose Flesh Skin: 0=Smooth Skin COWS Score: 16 S Progress Note (SOAP) Subjective: ALERT,IRRITABLE,ANXIOUS,INTERRUPTED SLEEP,PAIN IN THE BODY AND BACK Objective: 12/19/16 13:45 Vital Signs Temperature 98.4 F 12/19/16 10:39 Pulse Rate 61 12/19/16 10:39 Respiratory Rate 18 12/19/16 10:39 Blood Pressure 115/76 12/19/16 10:39 O2 Sat by Pulse Oximetry (%) EKG NSR,NORMAL ECG Laboratory Last Values WBC 5.6 K/mm3 (4.0-10.0) 12/19/16 07:40 RBC 4.76 M/mm3 (3.60-5.2) 12/19/16 07:40 Hgb 14.3 GM/dL (10.7-15.3) 12/19/16 07:40 Hct 43.6 % (32.4-45.2) 12/19/16 07:40 MCV 91.6 fl (80-96) 12/19/16 07:40 MCH 30.0 pg (25.7-33.7) 12/19/16 07:40 MCHC 32.8 g/dl (32.0-36.0) 12/19/16 07:40 RDW 13.7 % (11.6-15.6) 12/19/16 07:40 Plt Count 215 K/MM3 (134-434) 12/19/16 07:40 MPV 8.7 fl (7.5-11.1) 12/19/16 07:40 Sodium 137 mmol/L (136-145) 12/19/16 07:40 Potassium 4.4 mmol/L (3.5-5.1) 12/19/16 07:40 Chloride 104 mmol/L (98-107) 12/19/16 07:40 Carbon Dioxide 29 mmol/L (21-32) 12/19/16 07:40 Anion Gap 4 (8-16) L 12/19/16 07:40 BUN 10 mg/dL (7-18) D 12/19/16 07:40 Creatinine 0.8 mg/dL (0.55-1.02) 12/19/16 07:40 Creat Clearance w eGFR > 60 (>60) 12/19/16 07:40 Random Glucose 122 mg/dL (74-106) H 12/19/16 07:40 Calcium 9.3 mg/dL (8.5-10.1) 12/19/16 07:40 Total Bilirubin 0.4 mg/dL (0.2-1.0) 12/19/16 07:40 AST 12 U/L (15-37) L D 12/19/16 07:40 ALT 13 U/L (12-78) 12/19/16 07:40 Alkaline Phosphatase 83 U/L (45-117) 12/19/16 07:40 Total Protein 6.9 g/dl (6.4-8.2) 12/19/16 07:40 Albumin 3.4 g/dl (3.4-5.0) 12/19/16 07:40 RPR Titer Nonreactive (NONREACTIVE) 12/19/16 07:40 Assessment: 12/19/16 13:46 WITHDRAWAL SYMPTOM Plan: CONTINUE DETOX
[2016-12-19 19:23] LABS: URINE APPEARANCE CLEAR; URINE BILIRUBIN NEGATIVE (NEGATIVE); URINE BLOOD NEGATIVE (NEGATIVE); URINE COLOR LTYELLOW; URINE GLUCOSE (UA) NEGATIVE (NEGATIVE); URINE KETONE NEGATIVE (NEGATIVE); URINE LEUK ESTERASE NEGATIVE (NEGATIVE); URINE NITRITE NEGATIVE (NEGATIVE); URINE PROTEIN NEGATIVE (NEGATIVE); URINE UROBILINOGEN NEGATIVE mg/dL (0.2-1.0)
[2016-12-19] MEDS: THIAMINE HCL 100 MG TABLET (FP) PO SCH (22:45)
[2016-12-19] MEDS: cloNIDine HCL 0.1 MG TABLET PO SCH (22:45)
[2016-12-19] MEDS: diphenhydrAMINE HCL 50 MG CAPSULE PO PRN (22:46)
[2016-12-19] MEDS: LIDOCAINE PATCH REMOVAL MC SCH (22:47)
[2016-12-19] MEDS: ALBUTEROL SO4 6.7 GM HFA INHALER IH PRN (22:49)
[2016-12-20] MEDS: diazePAM 5 MG TABLET PO PRN ×3 (08:59→22:20)
--- NOTE | 2016-12-20 09:26 | CONSULT ---
[facility] Psychiatric Consult - Data Date of interview: 12/20/16 Admission source: [facility] Identifying data: This is 40 years old female with history of Bipolar disorder intoxicated with: Aopioids, Cannabis and Nicotine Substance Abuse History: - Smoking Cessation. Smoking history: Current every day smoker. Have you smoked in the past 12 months: Yes. Aproximately how many cigarettes per day: 20. Hx Chewing Tobacco Use: No. Initiated information on smoking cessation: Yes. 'Breaking Loose' booklet given: 12/18/16 (give on floor ). - Substance & Tx. History. Hx Alcohol Use: No. Hx Substance Use: Yes. Substance Use Type: Heroin, Marijuana. Hx Substance Use Treatment: Yes (detox, outpatient rehab, methadone hx 120mg). - Substances Abused. Heroin. Route : Inhalation. Frequency: Daily. Amount used: 13 bags. Age of first use: 35. Date of Last Use: 12/17/16. Marijuana/Hashish. Route: Smoking. Frequency: Daily. Amount used: 1 bag. Age of first use: 15. Date of Last Use: 12/17/16 Medical History: LBP, Asthma, Eczema Psychiatric History: Patient reports t5o carry Bipolar disorder with most [id number] psychiatric [id number] on about [address] [facility] reprots has been stable on Fepakote 500mg po bid in the past, willinig to restart mood stabi;izers again. Depakote 250mg po bid. Celexa 10mg poqd Physical/Sexual Abuse/Trauma History: Denies Additional Comment: Depakote 250mg po bid. Celexa 10mg poqd Mental Status Exam - Mental Status Exam Alert and Oriented to: Person Cognitive Function: Fair Patient Appearance: Unkempt Mood: Nervous, Anxious Affect: Constricted Patient Behavior: Guarded Speech Pattern: Appropriate Voice Loudness: Normal Thought Process: Goal Oriented Hallucinations: Denies Suicidal Ideation: Denies Homicidal Ideation: Denies Insight/Judgement: Fair Sleep: Difficulty falling asleep Appetite: Fair Muscle strength/Tone: Normal Gait/Station: Normal Additional Comments: Depakote 250mg po bid. Celexa 10mg poqd Psychiatric Findings - Problem List ([place] 1, 2,3) (1) Back pain Current Visit: Yes Status: Chronic Qualifiers: Back pain location: low back pain Chronicity: chronic Sciatica presence: without sciatica (2) Marijuana dependence Current Visit: Yes Status: Chronic (3) Nicotine dependence Current Visit: Yes Status: Chronic Qualifiers: Nicotine product type: cigarettes Substance use status: uncomplicated Qualified Code(s): F17.210 - Nicotine dependence, cigarettes, uncomplicated (4) Post-laminectomy syndrome Current Visit: Yes Status: Chronic (5) Uncomplicated opioid dependence Current Visit: Yes Status: Chronic (6) Drug-induced mood disorder Current Visit: No Status: Suspected (7) Bipolar 1 disorder Current Visit: Yes Status: Acute - Initial Treatment Plan Initial Treatment Plan: Depakote 250mg po bid. Celexa 10mg poqd
[2016-12-20] MEDS ORDERED: METHADONE HCL 5 MG TABLET (FOR DETOX USE ONLY) PO ONE (10:00)
[2016-12-20] MEDS: CYCLOBENZAPRINE HCL 10 MG TABLET (FP) PO PRN ×2 (10:53→22:20)
[2016-12-20] MEDS: DIVALPROEX SODIUM 250 MG TABLET E.C. (FP) PO SCH ×2 (10:53→22:20)
[2016-12-20] MEDS: PRENATAL VITAMINS W/ FOLIC ACID TABLET (FP) PO SCH (10:53)
[2016-12-20] MEDS: CITALOPRAM HYDROBROMIDE 10 MG TABLET (FP) PO SCH (10:53)
[2016-12-20] MEDS: FLUOCINONIDE 0.05% TOP OINT (60 GM TUBE) TP SCH ×2 (10:54→22:21)
[2016-12-20] MEDS: LIDOCAINE 5% TOPICAL PATCH TP SCH (10:54)
[2016-12-20] MEDS: NICOTINE 21 MG/24 HOURS TOPICAL PATCH TD SCH (10:54)
[2016-12-20] MEDS: cloNIDine HCL 0.1 MG TABLET PO SCH ×2 (10:56→22:20)
--- NOTE | 2016-12-20 11:16 | PN ---
S COWS - Scale Resting Pulse: 0= [place] 80 or Below Sweatin=Flushed/Facial Moisture Restless Observation: 1= Difficult to Sit Still Pupil Size: 0= Normal to Room Light Bone or Joint Aches: 2= Severe Diffuse Aches Runny Nose/ Eye Tearin= Runny Nose/Eyes GI Upset > 30mins: 1= Stomach Cramp Tremor Observation of Outstretched Hands: 2= Slight Tremor Visible Yawning Observation: 1= 1-2x During Session Anxiety or Irritability: 2=Irritable/Anxious Goose Flesh Skin: 3=Piloerection COWS Score: 16 [facility] Progress Note (SOAP) Subjective: irritable sweats agitation anxiety Objective: 12/20/16 11:21 Vital Signs Temperature 97.9 F 12/20/16 10:00 Pulse Rate 80 12/20/16 10:00 Respiratory Rate 18 12/20/16 10:00 Blood Pressure 115/67 12/20/16 10:00 O2 Sat by Pulse Oximetry (%) Laboratory Tests 12/19/16 12/19/16 12/19/16 07:40 07:40 07:40 WBC 5.6 RBC 4.76 Hgb 14.3 Hct 43.6 MCV 91.6 MCH 30.0 MCHC 32.8 RDW 13.7 Plt Count 215 MPV 8.7 Sodium 137 Potassium 4.4 Chloride 104 Carbon Dioxide 29 Anion Gap 4 L BUN 10 D Creatinine 0.8 Creat Clearance w eGFR > 60 Random Glucose 122 H Calcium 9.3 Total Bilirubin 0.4 AST 12 L D ALT 13 Alkaline Phosphatase 83 Total Protein 6.9 Albumin 3.4 Urine Color Urine Appearance Urine pH Ur Specific [place] Urine Protein Urine Glucose (UA) Urine Ketones Urine Blood Urine Nitrite Urine Bilirubin Urine Urobilinogen Ur Leukocyte Esterase RPR Titer Nonreactive 12/19/16 15:02 WBC RBC Hgb Hct MCV MCH MCHC RDW Plt Count MPV Sodium Potassium Chloride Carbon Dioxide Anion Gap BUN Creatinine Creat Clearance w eGFR Random Glucose Calcium Total Bilirubin AST ALT Alkaline Phosphatase Total Protein Albumin Urine Color Ltyellow Urine Appearance Clear Urine pH 6.0 Ur Specific [place] 1.020 Urine Protein Negative Urine Glucose (UA) Negative Urine Ketones Negative Urine Blood Negative Urine Nitrite Negative Urine Bilirubin Negative Urine Urobilinogen Negative Ur Leukocyte Esterase Negative RPR Titer awake/alert ambulating no acute distress Assessment: 12/20/16 11:21 withdrawal sx Plan: continue detox increase fluids
[2016-12-20] MEDS: THIAMINE HCL 100 MG TABLET (FP) PO SCH (22:20)
[2016-12-20] MEDS: diphenhydrAMINE HCL 50 MG CAPSULE PO PRN (22:20)
[2016-12-20] MEDS: LIDOCAINE PATCH REMOVAL MC SCH (22:21)
[2016-12-21] MEDS ORDERED: METHADONE HCL 5 MG TABLET (FOR DETOX USE ONLY) PO ONE (10:00)
[2016-12-21] MEDS: diazePAM 5 MG TABLET PO PRN (10:36)
[2016-12-21] MEDS: PRENATAL VITAMINS W/ FOLIC ACID TABLET (FP) PO SCH (10:37)
[2016-12-21] MEDS: cloNIDine HCL 0.1 MG TABLET PO SCH ×2 (10:37→22:29)
[2016-12-21] MEDS: CITALOPRAM HYDROBROMIDE 10 MG TABLET (FP) PO SCH (10:37)
[2016-12-21] MEDS: LIDOCAINE 5% TOPICAL PATCH TP SCH (10:38)
[2016-12-21] MEDS: NICOTINE 21 MG/24 HOURS TOPICAL PATCH TD SCH (10:38)
[2016-12-21] MEDS: DIVALPROEX SODIUM 250 MG TABLET E.C. (FP) PO SCH ×2 (10:39→22:29)
[2016-12-21] MEDS: FLUOCINONIDE 0.05% TOP OINT (60 GM TUBE) TP SCH ×2 (10:39→22:30)
--- NOTE | 2016-12-21 11:14 | PN ---
BHS Progress Note (SOAP) Subjective: sweats agitation anxiety shakes interrupted sleep Objective: 12/21/16 11:13 Vital Signs Temperature 97.7 F 12/21/16 06:00 Pulse Rate 60 12/21/16 06:00 Respiratory Rate 18 12/21/16 06:00 Blood Pressure 94/62 12/21/16 06:00 O2 Sat by Pulse Oximetry (%) awake/alert ambulating no acute distress Assessment: 12/21/16 11:14 withdrawal sx Plan: continue detox increase fluids
[2016-12-21] MEDS: hydrOXYzine PAMOATE 50 MG CAPSULE (FP) PO PRN ×2 (13:58→17:10)
[2016-12-21] MEDS: THIAMINE HCL 100 MG TABLET (FP) PO SCH (22:29)
[2016-12-21] MEDS: CYCLOBENZAPRINE HCL 10 MG TABLET (FP) PO PRN (22:29)
[2016-12-21] MEDS: diphenhydrAMINE HCL 50 MG CAPSULE PO PRN (22:29)
[2016-12-21] MEDS: LIDOCAINE PATCH REMOVAL MC SCH (22:30)
[2016-12-22] MEDS: hydrOXYzine PAMOATE 50 MG CAPSULE (FP) PO PRN ×3 (08:13→20:44)
[2016-12-22] MEDS ORDERED: METHADONE HCL 10 MG TABLET (FOR DETOX USE ONLY) PO ONE (10:00)
--- NOTE | 2016-12-22 10:37 | PN ---
BHS Progress Note (SOAP) Subjective: sweats anxiety Objective: 12/22/16 10:36 Vital Signs Temperature 97.7 F 12/22/16 10:05 Pulse Rate 76 12/22/16 10:05 Respiratory Rate 16 12/22/16 10:05 Blood Pressure 112/64 12/22/16 10:05 O2 Sat by Pulse Oximetry (%) awake/alert ambulating no acute distress Assessment: 12/22/16 10:37 withdrawal sx Plan: continue detox increase fluids d/c in am
[2016-12-22] MEDS: DIVALPROEX SODIUM 250 MG TABLET E.C. (FP) PO SCH ×2 (10:46→22:25)
[2016-12-22] MEDS: PRENATAL VITAMINS W/ FOLIC ACID TABLET (FP) PO SCH (10:47)
[2016-12-22] MEDS: CITALOPRAM HYDROBROMIDE 10 MG TABLET (FP) PO SCH (10:47)
[2016-12-22] MEDS: LIDOCAINE 5% TOPICAL PATCH TP SCH (10:47)
[2016-12-22] MEDS: CYCLOBENZAPRINE HCL 10 MG TABLET (FP) PO PRN ×2 (10:47→22:26)
[2016-12-22] MEDS: cloNIDine HCL 0.1 MG TABLET PO SCH ×2 (10:47→22:26)
[2016-12-22] MEDS: FLUOCINONIDE 0.05% TOP OINT (60 GM TUBE) TP SCH ×2 (10:47→22:26)
[2016-12-22] MEDS: NICOTINE 21 MG/24 HOURS TOPICAL PATCH TD SCH (10:48)
[2016-12-22] MEDS: THIAMINE HCL 100 MG TABLET (FP) PO SCH (22:25)
[2016-12-22] MEDS: LIDOCAINE PATCH REMOVAL MC SCH (22:27)
[2016-12-23] MEDS: hydrOXYzine PAMOATE 50 MG CAPSULE (FP) PO PRN (05:36)
[2016-12-23] MEDS ORDERED: METHADONE HCL 5 MG TABLET (FOR DETOX USE ONLY) PO ONE (06:00)
[2016-12-23 06:25] VITALS: BP 92/54; PULSE 73; TEMP 97.4
--- NOTE | 2016-12-23 08:15 | DS ---
[facility] Detox Discharge Summary Admission Date: 12/18/16 Discharge Date: 12/23/16 - History Present History: Cannabis Dependence, Opioid Dependence Additional Comments: follow up with after care program as arrangement Pertinent Past History: nicotine dependence asthma low back pain - Physical Exam Results Vital Signs: Vital Signs Temperature 97.4 F L 12/23/16 06:25 Pulse Rate 73 12/23/16 06:25 Respiratory Rate 18 12/23/16 06:25 Blood Pressure 92/54 12/23/16 06:25 O2 Sat by Pulse Oximetry (%) Pertinent Admission Physical Exam Findings: withdrawal finding - Treatment Hospital Course: Detox Protocol Followed, Detoxed Safely, Responded well, Discharged Condition Good Patient has Accepted a Rehab Referral to: declined - Medication Discharge Medications: Ambulatory Orders Albuterol Sulfate Inhaler - [Ventolin HFA Inhaler -] 2 puff IH Q4H PRN #1 inhaler 09/23/16 Fluocinonide 0.05% Oin [Lidex 0.05% Ointment -] 1 applic TP BID #1 tube Citalopram Hydrobromide [Celexa -] 10 mg PO DAILY #30 tab 12/20/16 Divalproex [Depakote -] 250 mg PO BID #60 tab 12/20/16 - Diagnosis (1) Asthma Status: Chronic Qualifiers: Asthma severity: mild persistent Asthma complication type: uncomplicated Qualified Code(s): J45.30 - Mild persistent asthma, uncomplicated (2) Back pain Status: Chronic Qualifiers: Back pain location: low back pain Chronicity: chronic Sciatica presence: without sciatica (3) Eczema Status: Chronic Qualifiers: Eczema type: other Qualified Code(s): L30.8 - Other specified dermatitis (4) Marijuana dependence Status: Chronic (5) Nicotine dependence Status: Chronic Qualifiers: Nicotine product type: cigarettes Substance use status: uncomplicated Qualified Code(s): F17.210 - Nicotine dependence, cigarettes, uncomplicated (6) Uncomplicated opioid dependence Status: Chronic (7) Drug-induced mood disorder Status: Suspected - AMA Did Patient Leave Against Medical Advice: No
--- NOTE | 2016-12-23 09:55 | DS ---
[facility] Detox Discharge Summary Admission Date: 12/18/16 Discharge Date: 12/23/16 - History Present History: Cannabis Dependence, Opioid Dependence - Physical Exam Results Vital Signs: Vital Signs Temperature 97.4 F L 12/23/16 06:25 Pulse Rate 73 12/23/16 06:25 Respiratory Rate 18 12/23/16 06:25 Blood Pressure 92/54 12/23/16 06:25 O2 Sat by Pulse Oximetry (%) - Treatment Hospital Course: Detox Protocol Followed, Detoxed Safely, Responded well, Discharged Condition Good, Rehab Referral Accepted - Medication Discharge Medications: Ambulatory Orders Albuterol Sulfate Inhaler - [Ventolin HFA Inhaler -] 2 puff IH Q4H PRN #1 inhaler 09/23/16 Fluocinonide 0.05% Oin [Lidex 0.05% Ointment -] 1 applic TP BID #1 tube Citalopram Hydrobromide [Celexa -] 10 mg PO DAILY #30 tab 12/20/16 Divalproex [Depakote -] 250 mg PO BID #60 tab 12/20/16 - Diagnosis (1) Bipolar 1 disorder Status: Acute (2) Asthma Status: Chronic Qualifiers: Asthma severity: mild persistent Asthma complication type: uncomplicated Qualified Code(s): J45.30 - Mild persistent asthma, uncomplicated (3) Back pain Status: Chronic Qualifiers: Back pain location: low back pain Chronicity: chronic Sciatica presence: without sciatica (4) Eczema Status: Chronic Qualifiers: Eczema type: other Qualified Code(s): L30.8 - Other specified dermatitis (5) Marijuana dependence Status: Chronic (6) Nicotine dependence Status: Chronic Qualifiers: Nicotine product type: cigarettes Substance use status: uncomplicated Qualified Code(s): F17.210 - Nicotine dependence, cigarettes, uncomplicated (7) Post-laminectomy syndrome Status: Chronic (8) Uncomplicated opioid dependence Status: Chronic (9) Drug-induced mood disorder Status: Suspected - AMA Did Patient Leave Against Medical Advice: No
== END 2016-12-23 06:35 | disposition home or self-care (01) | DRG 773 ==
LOC: YASAS 10:19 → Y6N 11:50
PROVIDERS: ADMIT Internal Medicine; ATTEND Internal Medicine
PROC: HZ2ZZZZ Detoxification Services for Substance Abuse Treatment (ICD-10-PCS; principal; 2016-12-18)
DX: F11.23 Opioid dependence with withdrawal (principal); F12.20 Cannabis dependence, uncomplicated; F17.210 Nicotine dependence, cigarettes, uncomplicated; F31.89 Other bipolar disorder; F19.24 Other psychoactive substance dependence with psychoactive substance-induced mood disorder; J45.30 Mild persistent asthma, uncomplicated; M54.5 Low back pain; G89.29 Other chronic pain; L30.9 Dermatitis, unspecified; M96.1 Postlaminectomy syndrome, not elsewhere classified; Z88.6 Allergy status to analgesic agent; Z91.5 Personal history of self-harm
CPT/HCPCS: 36415; 80053; 81003; 85027; 86593; 93005; 93010